=== PATIENT | male | born 1950 | race Caucasian/White ===

== ENCOUNTER 2018-04-20 09:19 | Day surgery (SDC) | payer OTHER, MEDICARE ==
[2018-04-18 18:39] VITALS: BMI 25.4
[2018-04-20] MEDS ORDERED: Lidocaine 2% Inj (20ml) ONE (09:28)
[2018-04-20] MEDS ORDERED: Iodixanol 320 MG/ML 200 ML BOTTLE IV ONE (09:29)
[2018-04-20] MEDS ORDERED: Iohexol 350mgl/ml 50 ML ONE (09:29)
[2018-04-20] MEDS ORDERED: Iodixanol 320 MG/ML 100 ML BOTTLE IV ONE ×2 (09:29→11:55)
[2018-04-20] MEDS ORDERED: Nitroglycerin 50mg in D5W 50 MG/250 ML BOTTLE IV ONE (09:29)
[2018-04-20] MEDS ORDERED: Verapamil 2 ML ONE (09:29)
[2018-04-20] MEDS ORDERED: Midazolam 2 MG/2 ML VIAL ONE ×4 (10:59→11:22)
[2018-04-20] MEDS ORDERED: Bacitracin 500 Units/gm Oint Foilpak UD TOP ONE ×2 (12:11→15:00)
[2018-04-20 13:00] VITALS: O2SAT 100
[2018-04-20 13:01] VITALS: TEMP 97.7
[2018-04-20 15:31] VITALS: PULSE 60
[2018-04-20 16:18] VITALS: BP 128/70; RESP 24
--- NOTE | 2018-04-20 17:45 | CARDCATH ---
PROCEDURE DATE: 04/20/2018 INDICATIONS: Mr. Chavez presented go to [facility] with acute inferior wall [place]. He underwent emergent angioplasty of RCA. He was noted to have high-grade mid LAD lesion and lesion and questionable moderate left main disease. The patient was brought for IVUS evaluation of left main to decide whether we should proceed with PCI of the LAD or prepare the patient for CABG. PROCEDURES PERFORMED 1. Coronary angiogram with IVUS interrogation of left main, minimal luminal area of 9.1 mm square for left main with 50% stenosis. LAD has severe diffuse mid 90% stenosis and proximal 70% stenosis. 2. Coronary angiogram with PTCA stenting of proximal and mid LAD, deployment of 3.0 x 38 and 4.0 x 38 [facility] drug-eluting stents, regeneration down to 0% FRIEDA-3 flow. COMPLICATIONS: The patient had a side branch perforation of the septal senior advisor, prolonged balloon insertion of the LAD stent was done. The patient remains hemodynamically stable. No clinical or electrocardiographic ischemic changes were noted. Stat post-procedure echo was done, which showed ejection fraction was normal with no effusion or tamponade or pericardial effusion. IMPRESSION: Successful percutaneous transluminal coronary angioplasty stenting of proximal and mid left anterior descending artery high-grade stenosis, deployment of two drug-eluting stents, moderate left main disease with minimal luminal area of 9.1 mm square. RECOMMENDATIONS: The patient is to be transferred back to [facility] in 3 hours. Continue the patient on dual-antiplatelet therapy and guideline-directed therapy for CAD. The patient can be discharged home in 24 to 48 hours. Chase Miller MD
--- NOTE | 2018-04-20 19:56 | CP.PCM.PN ---
Subjective - Date & Time of Evaluation Date of Evaluation: 04/20/18 Time of Evaluation: 11:00 - Subjective Subjective: Pt seen and examined before cardiac cath, pt has no complaints before procedure Objective - Vital Signs/Intake and Output Vital Signs (last 24 hours): Temp Pulse Resp BP Pulse Ox 97.7 F 60 24 128/70 100 04/20/18 12:43 04/20/18 16:23 04/20/18 16:23 04/20/18 16:23 04/20/18 16:10 Intake and Output: 04/20/18 04/21/18 18:59 06:59 Intake Total 780 Output Total 260 Balance 520 - Head Exam Head Exam: ATRAUMATIC, NORMOCEPHALIC - Eye Exam Eye Exam: EOMI - ENT Exam ENT Exam: Mucous Membranes Moist - Neck Exam Neck Exam: Full ROM, Normal Inspection - Respiratory Exam Respiratory Exam: Clear to Ausculation Bilateral, NORMAL BREATHING PATTERN. absent: Accessory Muscle Use, Wheezes - Cardiovascular Exam Cardiovascular Exam: RRR, +S1, +S2 - GI/Abdominal Exam GI & Abdominal Exam: Soft, Normal Bowel Sounds - Extremities Exam Extremities Exam: Full ROM. absent: Pedal Edema, Tenderness - Neurological Exam Neurological Exam: Alert, Awake, Oriented x3 - Psychiatric Exam Psychiatric exam: Normal Affect, Normal Mood - Skin Skin Exam: Dry, Intact, Warm Assessment and Plan - Assessment and Plan (Free Text) Assessment: ACS, Troponin positive STEMI Plan: Trop 0.4420, 43.80, 35.00 EKG showed inferior wall STEMI ECHO 04/19/18 EF 55-60%, diastolic disfunction Pt was cathed and stented in the RCA which had 100% stenosis [place] for [place] [facility] [place], successful PCI angioplasty stenting of proximal and mid LAD with high grade stenosis, 2 ROMERO deployed Medications ASA lopressor nitrostat tab crestor brilinta Pt seen, examined, assessment and plan discussed with Dr Paul Rodriguez PGY1, Internal Medicine Resident
== END 2018-04-20 16:02 | disposition short-term general hospital (02) ==
LOC: CATH 09:19 → ICU 12:46 → CATH 16:02
PROVIDERS: ATTEND Internal Medicine Interventional Cardiology
DX: I21.19 ST elevation (STEMI) myocardial infarction involving other coronary artery of inferior wall (principal); I25.10 Atherosclerotic heart disease of native coronary artery without angina pectoris
CPT/HCPCS: 92978; 92979; 93306; 93454; 99152; 99153; C1725; C1753; C1769; C1874 ×2; C1887; C1894; C9600; J1644 ×2; J2250; J3010; Q9966; Q9967 ×2